=== PATIENT | female | born 1960 | race Two or more races ===

== ENCOUNTER 2017-03-27 18:56 | Emergency (ER) | payer MEDICAID ==
--- NOTE | 2017-03-27 19:13 | ED Physician Chart ---
Chief Complaint/HPI - Patient Information Date Seen:: 03/27/17 Time Seen:: 19:08 Chief Complaint:: RIGHT FOOT INJURY History of Present Illness:: THIS IS A 56 YO FEMALE WHO WAS WALKING THIS PM AND INJURED HER RIGHT FOOT. SHE IS NOW CONCERNED ABOUT A POSSIBLE FRACTURE. SHE DENIES PREVIOUS INJURY TO HER RIGHT ANKLE AND FOOT. Allergies:: Allergies Allergy/AdvReac Type Severity Reaction Status Date / Time No Known Allergies Allergy Verified 03/27/17 19:00 Vitals:: Vital Signs - 8 hr 03/27/17 19:00 Temp 98.1 F HR 77 RR 18 BP 144/75 O2 Sat % 96 Historian:: Patient Review:: Nurse's Note Reviewed Review of Systems - Review of Systems General/Constitutional: No fever, No chills, No weight loss, No weakness, No diaphoresis, No edema, No loss of appetite Skin: No skin lesions, No rash, No bruising Head: No headache, No light-headedness Eyes: No loss of vision, No pain, No diplopia ENT: No earache, No nasal drainage, No sore throat, No tinnitus Neck: No neck pain, No swelling, No thyromegaly, No stiffness, No mass noted Cardio Vascular: No chest pain, No palpitations, No PND, No orthopnea, No edema Pulmonary: No SOB, No cough, No sputum, No wheezing GI: No nausea, No vomiting, No diarrhea, No pain, No melena, No hematochezia, No constipation, No hematemesis G/U: No dysuria, No frequency, No hematuria Musculoskeletal: Bone or joint pain (RIGHT FOOT SWELLING AND PAIN), No back pain , No muscle pain Endocrine: No polyuria, No polydipsia Psychiatric: No prior psych history, No depression, No anxiety, No suicidal ideation Hematopoietic: No bruising, No lymphadenopathy Allergic/Immuno: No urticaria, No angioedema Neurological: No syncope, No focal symptoms, No weakness, No paresthesia, No headache, No seizure, No dizziness, No confusion, No vertigo Past Medical History - Past Medical History Obtainable: Yes Past Medical History: No significant medical hx Family History: None Social History: Non Smoker, No Alcohol, No Drug Use Surgical History: , other (BLT) Psychiatricy History: None Medication: Reviewed Family Medical History - Family Member Mother History Unknown: Yes Physical Exam - Physical Examination General/Constitutional: Awake, Well-developed, well-nourished, Alert, No distress, GCS 15, Non-toxic appearing, Ambulatory Head: Atraumatic Eyes: Lids, conjuctiva normal, PERRL, EOMI Skin: Nl inspection, No rash, No skin lesions, No ecchymosis, Well hydrated, No lymphadenopathy ENMT: External ears, nose nl, Nasal exam nl, Lips, teeth, gums nl Neck: Nontender, Full ROM w/o pain, No JVD, No nuchal rigidity, No bruit, No mass, No stridor Respiratory: Nl effort/Exclusion, Clear to Auscultation, No Wheeze/Rhonchi/Rales Cardio Vascular: RRR, No murmur, gallop, rubs, NL S1 S2 GI: No tenderness/rebounding/guarding, No organomegaly, No hernia, Normal BS's, Nondistended, No mass/bruits, No McBurney tenderness : No CVA tenderness Extremities: Full ROM, normal strength in all extremities, No edema, Normal digits & nails Other Extremities comments:: THERE IS SWELLING FROM A HEMATOMA ON THE RIGHT FOOT OVER THE PROXIMAL 5TH METATARSAL BONE. THE SENSORY AND CIRCULATION ARE NORMAL. THERE IS NO OVIOUS DEFORMITY Neuro/Psych: Alert/oriented, DTR's symmetric, Normal sensory exam, Normal motor strength, Judgement/insight normal, Mood normal, Normal gait, No focal deficits Misc: normal gait, Normal back, No paraspinal tenderness Labs/Radiology/EKG Results - Radiology Results Results: x-ray of the right ankle and foot = no fracture seen Assessment - Assessment General Assessment: SPRAIN RIGHT FOOT ED Septic Shock - . Is Septic Shock (SBP<90, OR Lactate>4 mmol\L) present?: No - <6hrs of presentation: Vital Signs: Vital Signs - 8 hr 03/27/17 19:00 Temp 98.1 F HR 77 RR 18 BP 144/75 O2 Sat % 96 Reassessment (Disposition) - Reassessment Reassessment Condition:: Improved - Diagnosis Diagnosis:: SPRAIN RIGHT FOOT - Aftercare/Follow up Instructions Aftercare/Follow-Up Instructions:: Counseled pt regarding lab results/diagnosis & need follow up, Refer to Discharge Instructions, Counseled pt & family regarding lab results/diagnosis & need follow up - Patient Disposition Discharge/Transfer:: Home Condition at Disposition:: Improved ED Discharge Plan - Patient Disposition Admit/Discharge/Transfer: PT DISCHARGED HOME Condition at Disposition: Improved
--- NOTE | 2017-03-28 09:21 | Diagnostic Imaging Report ---
Right ankle 3 views Indication: Trauma Comparison: Right foot x-rays the same day Findings: No evidence of an acute fracture or dislocation. Mild soft tissue swelling is seen inferior to the lateral malleolus. Osteopenia is suspected. Impression: No evidence of an acute fracture. Mild soft tissue swelling inferior to the lateral malleolus. In the setting of trauma, if clinical symptoms persist and there is continued concern for an occult fracture, follow up exams in 5-7 days is suggested.
--- NOTE | 2017-03-28 09:22 | Diagnostic Imaging Report ---
Right foot 3 views Indication: Trauma Comparison: Right ankle x-ray the same day Findings: No evidence of an acute fracture or dislocation. There is mild increased distance between the third and fourth phalanges. There is mild soft tissue swelling along the hindfoot region.. Osteopenia is noted. Impression: No evidence of an acute fracture. Mild soft tissue swelling along the hindfoot region. In the setting of trauma, if clinical symptoms persist and there is continued concern for an occult fracture, follow up exams in 5-7 days is suggested.
== END 2017-03-27 20:20 | disposition home or self-care (01) ==
LOC: ER 18:56
DX: S93.601A Unspecified sprain of right foot, initial encounter (principal); X58.XXXA Exposure to other specified factors, initial encounter; Y93.89 Activity, other specified; Y92.89 Other specified places as the place of occurrence of the external cause; Y99.8 Other external cause status
CPT/HCPCS: 73610-RT-TC; 73630-TC-RT; Z7502